=== PATIENT | male | born 1970 | race Caucasian/White ===

== ENCOUNTER 2019-09-15 13:47 | Emergency (ER) | payer OTHER, BC, SELFPAY ==
--- NOTE | ~2019-09-15 | XR_ITS ---
EXAMINATION: XR foot LT min 3V DATE: 09/15/2019 14:04 INDICATION: Left foot pain TECHNIQUE: Dorsoplantar, lateral, and 2 oblique views of the left foot were obtained. COMPARISON: None. FINDINGS: There is soft tissue swelling of the fifth toe. No displaced fracture is identified. 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 Degenerative changes also noted at the second distal interphalangeal joint. IMPRESSION: 1. Soft tissue swelling without acute osseous findings. Reviewed, dictated and finalized at location B.
[2019-09-15 13:51] VITALS: BP 129/85; PULSE 82; RESP 16; TEMP 36.6; O2SAT 98
--- NOTE | 2019-09-15 13:55 | ED.LOWEXIN ---
HPI - Extremity Injury (Lower) General Chief Complaint: Extremity Injury, Lower Stated Complaint: foot injury Time Seen by Provider: 09/15/19 13:49 History of Present Illness HPI Narrative: 49 yo male w/o PMHx c/o left foot injury. 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 Moderate pain at the time, but was able to finish his shift. Pain and bruising are both worse today. He has not taken anything for the pain. No numbness, weakness. Related Data Home Medications Medication Instructions Recorded Confirmed No Home Medications 09/15/19 09/15/19 Allergies Allergy/AdvReac Type Severity Reaction Status Date / Time No Known Allergies Allergy Verified 09/15/19 13:58 Review of Systems Review of Systems: All systems reviewed & are unremarkable except as noted in HPI and below Constitutional: Constitutional: Denies fever(s) Respiratory: Respiratory: Denies cough and Denies dyspnea Gastrointestinal: Gastrointestinal: Denies abdominal pain and Denies nausea Musculoskeletal: Musculoskeletal: Denies back pain Neurologic: Denies dizziness and Denies weakness [facility] Social History Social History (Updated 09/15/19 @ 14:03 by Chai Botello MD) Living arrangements: with family Gender identity (if verbalized by the patient): Male Exam Const: General: healthy appearing, no acute distress and alert Orientation/consciousness: patient oriented x3 HENMT: Head: normal to inspection Resp: Effort & Inspection: normal respiratory effort Cardio: Other: 2+ DP and PT. Skin: Other: Bruising to the lateral aspect of the left foot. Neuro: General: patient oriented x3 and moves all extremities Other: Sensation intact to left foot. Extrem: Other: Tenderness to the lateral aspect of the left foot with mild swelling. No deformity Psych: Appearance: grossly normal Mental Status: mental status grossly normal Affect: normal affect Thought content: Yes Normal thought content present Course Vital Signs Vital signs: Vital Signs Temperature 36.6 C 09/15/19 13:51 Pulse Rate 82 09/15/19 13:51 Respiratory Rate 16 09/15/19 13:51 Blood Pressure 129/85 09/15/19 13:51 Pulse Oximetry 98 09/15/19 13:51 Temperature 36.6 C 09/15/19 13:51 Pulse Rate 82 09/15/19 13:51 Respiratory Rate 16 09/15/19 13:51 Blood Pressure 129/85 09/15/19 13:51 Pulse Oximetry 98 09/15/19 13:51 MDM - Extremity Injury (Lower) Differential Diagnosis Differential diagnosis: Likely other (foot fracture, contusion) Medical Records Attestation: I reviewed the patient's medical records. Discharge Plan Discharge Clinical Impression: Contusion of foot, left Qualifiers: Encounter type: initial encounter Qualified Code(s): S90.32XA - Contusion of left foot, initial encounter Patient Disposition: Home, Self-Care Condition: Stable Instructions: Foot Contusion (ED) Prescriptions: No Action No Home Medications RF: 0 Interventions: Discharge Disposition Last Done: 09/15/19 14:33 IV Removed Last Done: 09/15/19 14:33 IV Stop Time Documented Last Done: 09/15/19 14:33 Follow-up/Referrals: Sathya,Giuseppe Love MD [Primary Care Provider] - Stand Alone Forms: Work/School Release IP Discharge Date/Time: 09/15/19 14:35
== END 2019-09-15 14:35 | disposition home or self-care (01) ==
LOC: ANHED 14:32
PROVIDERS: Emergency Provider Emergency Medicine; PCP Internal Medicine
DX: S90.32XA Contusion of left foot, initial encounter (principal); W24.0XXA Contact with lifting devices, not elsewhere classified, initial encounter
CPT/HCPCS: 73630; 99283

== ENCOUNTER 2021-05-16 07:06 | Observation (INO) | payer OTHER, SELFPAY ==
--- NOTE | ~2021-05-16 | XR_ITS ---
EXAMINATION: XR lumbar spine 2-3V DATE: 05/16/2021 08:18 INDICATION: Back pain. TECHNIQUE: Anteroposterior and lateral views of the lumbar spine, and cone-down lateral view of the l umbosacral junction were obtained. COMPARISON: None. FINDINGS: 5 degree lumbar dextrocurvature. Sagittal alignment is normal. Vertebral body heights are normal. Min imal disc height loss with mild degenerative endplate changes from T12-L1 through L5-S1 relatively sp aring the L4-L5. Multilevel mild bilateral lumbar facet osteoarthritis. Sacral arches are intact. Mil d bilateral hip and sacroiliac osteoarthritis. Bowel gas pattern is unremarkable. IMPRESSION: 1. 5 degrees lumbar dextrocurvature with mild spondylosis. Reviewed, dictated and finalized at location A. L CASE MANAGER
--- NOTE | ~2021-05-16 | MR_ITS ---
EXAMINATION: MR lumbar spine wo [facility] EXAM DATE: 05/17/2021 09:14 INDICATION: back pain, sciatica . TECHNIQUE: Multi-sequential, multiplanar MR images of the lumbar spine were obtained without contrast . Sagittal T1, T2, T2 fat saturation images. Axial T2 weighted images. There is no prior study for comparison. FINDINGS: There is moderate loss of the L5-S1 disc height, mild to moderate disc disease at the other lumbar levels. Vertebral body heights are maintained. Small Schmorl's nodes at the endplates. There is 2-3 mm retrolisthesis L5 on S1. The conus medullaris terminates at the L1/2 level and has normal s ignal intensity and morphology. There are no suspicious marrow signal abnormalities. Paraspinal soft tissue is unremarkable. Level by level evaluation: T12-L1: Disc does not extend beyond the endplate margin. Facet arthropathy: Mild. Neural foraminal stenosis: No stenosis. Central canal stenosis: No stenosis. L1-L2: Disc does not extend beyond the endplate margin. Facet arthropathy: None. Neural foraminal stenosis: No stenosis. Central canal stenosis: No stenosis. L2-L3: There is a mild diffuse disc bulge. Facet arthropathy: Mild. Neural foraminal stenosis: No stenosis. Central canal stenosis: No stenosis. L3-L4: There is a mild diffuse disc bulge. Facet arthropathy: Mild. Neural foraminal stenosis: No stenosis. Central canal stenosis: No stenosis. L4-L5: There is a mild to moderate diffuse disc bulge. Facet arthropathy: Moderate. Neural foraminal stenosis: Mild to moderate right, mild left. Central canal stenosis: Mild. L5-S1: There is a moderate diffuse disc bulge. Facet arthropathy: Moderate. Neural foraminal stenosis: Moderate right, mild to moderate left. Central canal stenosis: Mild. IMPRESSION: 1. Mild to moderate lumbar spondylosis. Reviewed, dictated and finalized at location B. HER [employer]
[2021-05-16 07:03] VITALS: BP 111/67; PULSE 81; RESP 17; TEMP 36.3; O2SAT 100
[2021-05-16] MEDS: CYCLOBENZAPRINE HCL 10 MG TABLET PO (07:57)
[2021-05-16] MEDS: KETOROLAC 30 MG/ML VIAL (*BKC) IV PUSH ×2 (07:57→21:45)
[2021-05-16 08:23] LABS: Basophils Percent Auto 0.2 % (0.2-1.2); Eosinophils Absolute Auto 0.1 K/mm3 (0-0.3); Eosinophils Percent Auto 0.7 % (0-4.4); Hematocrit 48.9 % (42.0-52.0); Hemoglobin 16.3 g/dL (14.0-18.0); Immature Granulocyte Absolute 0.06 K/mm3 (0.00-0.031); Immature Granulocyte Percent A 0.7 % (0-0.5); Lymphocytes Absolute Auto 0.72 K/mm3 (0.9-3.2); Mean Corpuscular HGB Conc 33.3 g/dl (32-36); Mean Corpuscular Hemoglobin 30.8 pg (26-34); Mean Corpuscular Volume 92.4 fl (80-100); Mean Platelet Volume 9.8 fl (7.4-10.4); Monocytes Absolute Auto 0.8 K/mm3 (0.1-0.6); Neutrophils Absolute Auto 7.4 K/mm3 (1.3-6.7); Neutrophils Percent Auto 81.4 % (45.5-73.1); Platelet Count Result 264 k/mm3 (150-375); Red Blood Count 5.29 M/mm3 (4.6-6.20); Red Cell Distribution Width 13.7 % (11.5-14.5)
[2021-05-16 08:28] LABS: Add Urine Microscopic? YES; Appearance Urine Cloudy (Clear); Bilirubin Urine Negative (Negative); Blood Urine Negative (Negative); Color Urine Yellow (Yellow); Glucose Urine UA Negative (Negative); Ketones Urine Negative (Negative); Leukocyte Esterase Ur Negative LEU/UL (Negative); Mucus Urine Rare /lpf; Nitrate Urine Negative (Negative); Protein Urine Negative (Negative); RBC Urine 0-2 /hpf (0-2); Specific Grav Ur 1.015 (1.001-1.035); Squamous Epithelial Cell Urine Rare /hpf (Few); Urobilinogen Urine Negative mg/dL (<2.0); WBC Urine 0-3 /hpf
[2021-05-16 08:32] LABS: Alanine Aminotransferase 60 U/L (4-50); Albumin Level 4.4 g/dL (3.5-5.1); Alkaline Phosphatase 57 U/L (38-126); Anion Gap 8 mmol/L (8-16); Aspartate Amino Transferase 45 U/L (17-59); Bilirubin,Total 1.1 mg/dL (0.2-1.3); Blood Urea Nitrogen 16 mg/dL (9-20); Carbon Dioxide 24 mmol/L (22-30); Chloride 103 mmol/L (98-107); Estimated CRCL calculation 104 ml/min; Estimated Glomerular Filt Rate > 60; Glucose 126 mg/dL (65-110); Potassium 3.8 mmol/L (3.4-5.0); Sodium 135 mmol/L (137-145)
--- NOTE | 2021-05-16 08:54 | ED.GENADULT ---
HPI - General Adult General Chief complaint: Back Pain/Injury Stated complaint: back spasms Source: patient and RN notes reviewed History of Present Illness HPI narrative: Patient is a 50 y/o male complaining left low back pain since last night. He states that he was stretching before getting on his elliptical for work out. He felt spasm in his back and he had trouble getting up. He still could not get up this morning and call EMS. He rates his pain as 7/10 with some radiation to left thigh. He states that heating pad seems to help with his pain slightly. He has no weakness or numbness in his legs. He has no difficulty with bowel or bladder function. Related Data Home Medications Medication Instructions Recorded Confirmed diclofenac sodium PO 05/16/21 tadalafil mg 05/16/21 Allergies Allergy/AdvReac Type Severity Reaction Status Date / Time No Known Allergies Allergy Verified 05/16/21 07:09 Review of Systems Constitutional: Constitutional: Denies chills, Denies fever(s), Denies headache(s) and Denies weakness Eyes: Eyes: Denies blurry vision ENT: Denies headache(s) and Denies neck pain Cardiovascular: Cardiovascular: Denies chest pain and Denies dyspnea Respiratory: Respiratory: Denies cough and Denies dyspnea Gastrointestinal: Gastrointestinal: Denies abdominal pain, Denies diarrhea, Denies nausea and Denies vomiting Genitourinary: Genitourinary: Denies hematuria and Denies dysuria Musculoskeletal: Musculoskeletal: Reports back pain and Denies neck pain Neurologic: Denies headache(s) and Denies weakness PMFSH Social History Social History Gender identity (if verbalized by the patient): Male Exam Const: General: no acute distress and well developed Orientation/consciousness: oriented to person, oriented to place, oriented to time and patient oriented x3 HENMT: Head: normocephalic Ears: external ears normal General nose exam: Normal external nose present Eyes: General: appearance normal, both eyes and all related structures Conjunctivae: conjunctivae normal Neck: Neck: normal visual inspection and full ROM Chest: Chest palpation & inspection: normal inspection of the chest and no tenderness Resp: Effort & Inspection: normal respiratory effort Auscultation: clear to auscultation bilaterally Cardio: Rate: regular rate Rhythm: regular rhythm GI: GI Palp: No abdominal tenderness and Yes Soft to palpation Skin: General skin exam: normal color and turgor normal Neuro: General: oriented to person, oriented to place, oriented to time and patient oriented x3 Cognition (Neuro): normal cognition Motor exam (neuro): Other motor observations present (able to move both legs) Extrem: General: normal to inspection, full ROM and no pedal edema Psych: Appearance: grossly normal Mental Status: mental status grossly normal Affect: normal affect Course Reevaluation(s) Reevaluation #1: Rechecked. Patient feels somewhat better. However, he is still not able to stand up. Physical therapy is not available at this time. I offered patient admission for observation, pain control and further evaluation. However, patient does not want to stay in the hospital. He wants to go home to see his back gets better with medication. Date: 05/16/21 Time: 14:45 Reevaluation #2: Rechecked. Patient is still not able to ambulate even with a walker. Advised patient to be admitted for observation and further work up. Date: 05/16/21 Time: 15:03 Consultations Consultation #1: Discussed with LEONARDO Nice, who agrees to consult. Date: 05/16/21 Time: 15:20 Vital Signs Vital signs: Vital Signs Temperature 36.3 C L 05/16/21 07:03 Pulse Rate 81 05/16/21 07:03 Respiratory Rate 17 05/16/21 07:03 Blood Pressure 111/67 05/16/21 07:03 Pulse Oximetry 100 05/16/21 07:03 Temperature 36.3 C L 05/16/21 07:03 Pulse Rate 67 05/16/21 11:05 Respiratory Rate 16
[2021-05-16 09:07] LABS: Creatine Kinase 178 U/L (55-170)
[2021-05-16 11:05] VITALS: BP 118/64; PULSE 67; RESP 16; O2SAT 99
--- NOTE | 2021-05-16 11:21 | PC.NURSE ---
Attempted to walk patient but pt states he is in a lot of pain, pt was able to get half way off the bed and could not progress to getting off the bed to stand, Dr. Artis aware, awaiting new orders
[2021-05-16] MEDS: MORPHINE SULFATE (*CRX) 4 MG/ML INJ IV PUSH (12:15)
--- NOTE | 2021-05-16 13:15 | PC.NURSE ---
Informed Dr. Artis pt states that he is still in pain when he is trying to stand straight up and he could possibly try with a walker, Dr. Artis states that he will put an order in for physical therapy to come see him, pt states he is not in pin when he is not moving and able to bend his knees without pain
--- NOTE | 2021-05-16 15:00 | PC.NURSE ---
Pt continues to remove monitoring to stretch and reposition himself on the side of the bed
[2021-05-16 17:52] VITALS: BP 115/75; PULSE 66; RESP 18; O2SAT 100
--- NOTE | 2021-05-16 18:42 | PC.NURSE ---
Gave report to Veronique DIEHL awaiting for room to be cleaned, no further questions or concerns
[2021-05-16 19:20] VITALS: BP 122/73; PULSE 76; RESP 18; O2SAT 100
[2021-05-16 21:14] VITALS: PULSE 76; RESP 18; O2SAT 100
--- NOTE | 2021-05-16 21:18 | ADMGEN ---
This patient, Gaby Krishna, was admitted to Medical Room 347-. Patient/family oriented to hospital policies and general routines including ID bracelet, bed and alarms, visiting hours, pain management, procedures, bathroom and other care routines, personal items, smoking policy, room service/diet, and visiting hours. Information on how to activate the Rapid Response Team has been discussed. Patient/Family are encouraged to report perceived risks to care and to ask questions if they do not understand what they are told or what they should do.
[2021-05-16 21:19] VITALS: BMI 31.3
[2021-05-16 22:00] VITALS: BP 118/75; PULSE 74; RESP 18; TEMP 36.9; O2SAT 99
--- NOTE | 2021-05-16 23:10 | PM.IMHP ---
H&P: HPI History of Present Illness Date/Time: 05/16/21 23:10 Chief Complaint: Back pain Narrative: Patient is a 50 y/o male who presents via EMS due to sudden-onset lower back pain since earlier today. He states that he was stretching in the morning when he started to have a spasm in his back suddenly and was having difficulty getting. You could not get this morning and hence called the EMS rated the pain at 7 x 10 in intensity with radiation to his left thigh area. He does have history of similar episode in the past but not able to exactly the denote when that happened. No fever or chills no weakness or numbness in his legs. No urinary incontinence or urinary retention. No stool incontinence well. Review of Systems Review of Systems: - CONSTITUTIONAL: Denies weight loss, fever and chills. - HEENT: Denies changes in vision and hearing - RESPIRATORY: Denies SOB and cough. - CV: Denies palpitations and CP. - GI: Denies abdominal pain, nausea, vomiting and diarrhea. - : Denies dysuria and urinary frequency. - MSK: Denies myalgia and joint pain. Reports back pain - SKIN: Denies rash and pruritus. - NEUROLOGICAL: Denies headache and syncope. - PSYCHIATRIC: Denies recent changes in mood. Denies anxiety and depression. All systems reviewed & are unremarkable except as noted in HPI and below Constitutional: Constitutional: Reports fatigue and Reports weakness Neurologic: Reports weakness Endocrine: Endocrine: Reports fatigue [facility] Social History Social History Smoking status: Never smoker Second hand tobacco smoke exposure: No Alcohol intake: never Substance use: never Substance use type: does not use Gender identity (if verbalized by the patient): Male Spiritual care concerns: No Meds Home Medications and Allergies Home Medications Medication Instructions Recorded Confirmed Type cyclobenzaprine 10 mg PO TID PRN #20 tablet 05/16/21 Rx diclofenac sodium PO 05/16/21 History hydrocodone-acetaminophen 1 tablet PO Q6H PRN #15 tablet 05/16/21 Rx tadalafil mg 05/16/21 History Allergies Allergy/AdvReac Type Severity Reaction Status Date / Time No Known Allergies Allergy Verified 05/16/21 07:09 Vital Signs Vital Signs - 24 hr 05/16/21 07:03 05/16/21 11:05 05/16/21 17:52 Temperature 97.3 F L Pulse Rate 81 67 66 Respiratory Rate 17 16 18 Blood Pressure 111/67 118/64 115/75 Pulse Oximetry 100 99 100 05/16/21 19:20 05/16/21 21:14 Temperature Pulse Rate 76 76 Respiratory Rate 18 18 Blood Pressure 122/73 Pulse Oximetry 100 100 Exam Narrative: GENERAL: The patient is well developed, not in acute distress HEENT: Nonicteric sclerae, PERRLA, EOMI. Oropharynx clear. Moist mucous membranes. Conjunctivae appear well perfused. CHEST: Chest wall is nontender. HEART: Regular rate and rhythm without murmur, rubs, or gallops LUNGS: Clear to auscultation bilaterally. no respiratory distress ABDOMEN: Soft, positive bowel sounds, non-tender, no organomegaly. SKIN: No rash, no excessive bruising, petechiae, or purpura. NEUROLOGIC: Cranial nerves II-XII intact, alert and oriented x 3, no gross motor deficits EXTREMITIES: no edema, cyanosis or clubbing Back: Tender left paraspinal area in sacral area straight leg raise test negative not able to lift more than 40? on both sides H&P: Results Labs Labs: Short CBC 05/16/21 Range/Units 08:10 WBC 9.0 (4.5-10.0) K/mm3 Hgb 16.3 (14.0-18.0) g/dL Hct 48.9 (42.0-52.0) % Plt Count 264 (150-375) k/mm3 [facility] 05/16/21 08:10 Sodium 135 L Potassium 3.8 Chloride 103 Carbon Dioxide 24 BUN 16 Creatinine 0.80 Glucose 126 H Calcium 9.0 Cardiac Enzymes 05/16/21 Range/Units 08:10 Total Creatine Kinase 178 H (55-170) U/L Liver Function 05/16/21 Range/Units 08:10 Total Bilirubin 1.1 (0.2-1.3) mg/dL AST 45 (17-59) U/L ALT 60
[2021-05-17 00:14] VITALS: O2SAT 98
[2021-05-17] MEDS: CYCLOBENZAPRINE HCL 10 MG TABLET PO ×2 (05:41→15:05)
[2021-05-17 05:46] VITALS: BP 107/73; PULSE 75; RESP 16; TEMP 36.9; O2SAT 97
[2021-05-17] MEDS: methylPREDNISolone (MEDROL) DOSEPACK 4 MG TABLETS PO ×2 (06:41→11:54)
--- NOTE | 2021-05-17 13:26 | PC.NURSE ---
Patient has been up ambulating in the halls without any difficulty with a walker.
[2021-05-17 14:00] VITALS: BP 122/72; PULSE 91; RESP 18; TEMP 36.6; O2SAT 98
--- NOTE | 2021-05-17 15:29 | PM.DS ---
DS: Admitting Diagnosis Discharge Date 05/17/21 Admitting Diagnosis (1) Intractable back pain: Code(s): M54.9 - Dorsalgia, unspecified Status: Acute DS: Discharge Diagnosis Discharge Diagnosis (1) Low back pain: Qualifiers: Back pain laterality: left Chronicity: unspecified Sciatica laterality: sciatica of left side Sciatica presence: with sciatica Qualified Code(s): M54.42 - Lumbago with sciatica, left side Code(s): M54.50 - Low back pain, unspecified Status: Acute (2) Intractable back pain: Code(s): M54.9 - Dorsalgia, unspecified Status: Acute DS: Summary Hospital Course Reason for hospitalization: Acute back pain Hospital Course: 50-year-old male with no significant past medical history presents to the emergency room with acute onset of low back pain that did not improve with initial measures in the ER. Patient was admitted and placed on Medrol Dosepak, anti inflammatory analgesics, low-dose narcotics, and muscle relaxant with rapid improvement of his symptoms. He is discharged home in stable conditions follow-up with his primary care physician within 1 week. Status at Discharge Overall status at discharge: patient is progressing back to baseline Time Spent with Patient Time attestation: Total time spent providing and/or coordinating discharge services: Time spent: Less than 30 minutes Exam Narrative: GENERAL: The patient is well developed, not in acute distress HEENT: Nonicteric sclerae, EOMI. Oropharynx clear. Moist mucous membranes. Conjunctivae appear well perfused. CHEST: Chest wall is nontender. HEART: Regular rate and rhythm without murmur, rubs, or gallops LUNGS: Clear to auscultation bilaterally. no respiratory distress ABDOMEN: Soft, positive bowel sounds, non-tender, no organomegaly. SKIN: No rash, no excessive bruising, petechiae, or purpura. NEUROLOGIC: Cranial nerves II-XII intact, alert and oriented x 3, no gross motor deficits EXTREMITIES: no edema, cyanosis or clubbing Back: Tender left paraspinal area in sacral area straight leg raise test improved since admission DS: Data Data Completed and Pending Completed studies during hospitalization: INDICATION: back pain, sciatica . TECHNIQUE: Multi-sequential, multiplanar MR images of the lumbar spine were obtained without contrast. Sagittal T1, T2, T2 fat saturation images. Axial T2 weighted images. There is no prior study for comparison. FINDINGS: There is moderate loss of the L5-S1 disc height, mild to moderate disc disease at the other lumbar levels. Vertebral body heights are maintained. Small Schmorl's nodes at the endplates. There is 2-3 mm retrolisthesis L5 on S1. The conus medullaris terminates at the L1/2 level and has normal signal intensity and morphology. There are no suspicious marrow signal abnormalities. Paraspinal soft tissue is unremarkable. Level by level evaluation: T12-L1: Disc does not extend beyond the endplate margin. Facet arthropathy: Mild. Neural foraminal stenosis: No stenosis. Central canal stenosis: No stenosis. L1-L2: Disc does not extend beyond the endplate margin. Facet arthropathy: None. Neural foraminal stenosis: No stenosis. Central canal stenosis: No stenosis. L2-L3: There is a mild diffuse disc bulge. Facet arthropathy: Mild. Neural foraminal stenosis: No stenosis. Central canal stenosis: No stenosis. L3-L4: There is a mild diffuse disc bulge. Facet arthropathy: Mild. Neural foraminal stenosis: No stenosis. Central canal stenosis: No stenosis. L4-L5: There is a mild to moderate diffuse disc bulge. Facet arthropathy: Moderate. Neural foraminal stenosis: Mild to moderate right, mild left. Central canal stenosis: Mild. L5-S1: There is a moderate diffuse disc bulge. Facet arthropathy: Moderate. Neural foraminal stenosis: Moderate right, mild to moderate left. Central canal stenosis: Mild. IMPRESSION: 1. Mild to moderate lumbar spondylosis. Discharg
--- NOTE | 2021-05-17 16:17 | PC.NURSE ---
Patient did not want the script for hydrocodone, stated he had enough at home if he needed to take them.
== END 2021-05-17 16:10 | disposition home or self-care (01) ==
LOC: ANHED 16:24 → ANH3MED 05-17 10:40 → ANH2MED 05-18 12:03 → ANH3MED 05-18 12:03
PROVIDERS: Admitting Provider Family Medicine; Emergency Provider Emergency Medicine; PCP Internal Medicine; Visit Provider Hospitalist
DX: M54.42 Lumbago with sciatica, left side (principal); M47.816 Spondylosis without myelopathy or radiculopathy, lumbar region
CPT/HCPCS: 36415; 72100; 72148; 80053; 81001; 82550; 85025; 96374; 96375; 96376; 97110; 97161; 97165; 99285; A9270; G0378; J1885; J2270

== ENCOUNTER 2022-07-26 10:30 | Emergency (ER) | payer OTHER, SELFPAY ==
[2022-07-26 10:48] VITALS: BP 120/84; PULSE 86; RESP 16; TEMP 36.4; O2SAT 99
--- NOTE | 2022-07-26 12:08 | PC.NURSE ---
poison control estrella self ph of product 13-14 fluorescein stain for injury treat and follow up with eye provider
--- NOTE | 2022-07-26 12:17 | ED.EYEPROB ---
HPI - Eye Problem General Chief complaint: Eye Problems Stated complaint: chemical in eye Time Seen by Provider: 07/26/22 10:57 Source: patient Mode of arrival: ambulatory Limitations: no limitations History of Present Illness HPI Narrative: This is a 51-year-old male that presents to the emergency department after an injury today at work. Reports he accidentally got a manager sales ([employer]) splashed into his right eye. This happened around 9:30 this morning. 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 Reports some mild burning still. Also reports some redness in his eye. Denies any visual changes. Related Data Home Medications Medication Instructions Recorded Confirmed diclofenac sodium 75 mg 75 mg PO 05/16/21 tablet,delayed release tadalafil 20 mg tablet 20 mg PO 05/16/21 Allergies Allergy/AdvReac Type Severity Reaction Status Date / Time No Known Allergies Allergy Verified 07/26/22 10:52 Review of Systems Review of Systems: CONSTITUTIONAL: Denies fever EYES: Reports redness. Denies visual changes, or discharge. All systems reviewed & are unremarkable except as noted in HPI and below PMFSH Past Medical History Medical History (Updated 07/26/22 @ 14:05 by Johana Qureshi PA-C) History of depression Social History Social History Smoking status: Never smoker Second hand tobacco smoke exposure: No Alcohol intake: never Substance use: never Substance use type: does not use Living arrangements: with family Gender identity (if verbalized by the patient): Male Spiritual care concerns: No Exam Narrative: GENERAL: Well-appearing, well-nourished, and in no acute distress. HEAD: Normocephalic, atraumatic. EYES: PERRLA and EOMI. Mild right conjunctival injection. Visual acuity 20/30 bilaterally. No fluorescein stain uptake. No foreign bodies noted EXTREMITIES: Normal range of motion. No edema. SKIN: Warm, dry, no rash. NEURO: No focal deficits. Alert and oriented x3. PSYCH: Normal mood and affect Course Vital Signs Vital signs: Vital Signs Temperature 97.6 F 07/26/22 10:48 Pulse Rate 86 07/26/22 10:48 Respiratory Rate 16 07/26/22 10:48 Blood Pressure 120/84 07/26/22 10:48 Pulse Oximetry 99 02/23/23 10:48 Oxygen Delivery Room Air 07/26/22 10:48 Temperature 97.6 F 07/26/22 10:48 Pulse Rate 86 07/26/22 10:48 Respiratory Rate 16 07/26/22 10:48 Blood Pressure 120/84 07/26/22 10:48 Pulse Oximetry 99 07/26/22 10:48 Oxygen Delivery Room Air 07/26/22 10:48 MDM - Eye Problem MDM Narrative Medical decision making narrative: Patient presents to the ER for right eye chemical exposure. Reports he had a manager sales splashed into his right eye. No visual changes. Patient had washed his eye out prior to arrival. Had additional eye washing in the ED. Visual acuity is normal. Reporting some mild burning sensation. Mild conjunctival injection, otherwise normal exam. Poison control recommended fluorescein stain exam which was negative and follow up with ophthalmology. Patient is stable and felt appropriate for further outpatient evaluation. He was given warnings to return to the ER Differential Diagnosis Differential diagnosis: Likely corneal abrasion, conjunctivitis and other (chemical burn) Critical Care Time Critical Care Time Critical Care Time: No Discharge Plan Discharge Clinical Impression: Chemical exposure of eye Patient Disposition: Home, Self-Care Condition: Stable Additional Instructions: Return to the ER if you experience fever, redness and swelling of your eye, visual changes, or any other symptoms that are concerning to you Follow up with ophthalmology in the next couple of days. Call to make an appointment. [facility] centers or [facility] ophthalmology Prescriptions: No Action diclofenac sodium 75 mg tablet,delayed release (DR/EC) 75 mg PO
--- NOTE | 2022-07-26 13:49 | PC.NURSE ---
pt irritable about delay, informed him provider would be in shortly to update. pt sarcastic in response, my eye could be on the floor. pt educated that poison control believed that current plan by provider was safe for him
== END 2022-07-26 14:27 | disposition home or self-care (01) ==
PROVIDERS: Emergency Provider Physician Assistant; PCP Internal Medicine
DX: T65.891A Toxic effect of other specified substances, accidental (unintentional), initial encounter (principal); H57.11 Ocular pain, right eye
CPT/HCPCS: 99283; A9270